=== PATIENT | male | born 1995 | race Two or more races ===

== ENCOUNTER 2016-06-03 20:54 | Emergency (ER) | payer SELFPAY ==
[~2016-06-03] VITALS: Ht 175.3 cm; Wt 86.2 kg
[2016-06-03] MEDS ORDERED: diphenhydrAMINE HCL 50 MG/ML VIAL IV ONE (23:00)
[2016-06-03] MEDS ORDERED: IV NS 0.9% 1,000 ML BAG IV ONE (23:00)
[2016-06-03] MEDS ORDERED: METOCLOPRAMIDE HCL 10 MG/2 ML VIAL IV ONE (23:00)
[2016-06-03] MEDS ORDERED: METOCLOPRAMIDE HCL 10 MG/2 ML VIAL ONE (23:19)
[2016-06-03] MEDS ORDERED: IV NS 0.9% 1,000 ML ONE (23:19)
[2016-06-03] MEDS ORDERED: diphenhydrAMINE HCL 50 MG/ML VIAL ONE (23:19)
[2016-06-03] MEDS ORDERED: IV SET PRIMARY 1 EA INFUS.SET MC ONE ×2 (23:19→23:26)
[2016-06-03] MEDS ORDERED: IV NS 0.9% 100 ML IV ONE (23:26)
[2016-06-04 01:14] VITALS: BP 126/77
== END 2016-06-04 01:14 | disposition home or self-care (01) ==
LOC: ER 20:54
DX: R51 Headache (principal); I10 Essential (primary) hypertension; J45.909 Unspecified asthma, uncomplicated; F17.200 Nicotine dependence, unspecified, uncomplicated; Z98.890 Other specified postprocedural states
CPT/HCPCS: A4606; J1200; J2765; J7030; Z7610

== ENCOUNTER 2016-08-27 18:54 | Emergency (ER) | payer OTHER ==
[~2016-08-27] VITALS: Ht 177.8 cm; Wt 86.2 kg
[2016-08-27 19:37] VITALS: BP 139/79
[2016-08-27] MEDS ORDERED: SULFAMETH/TRIMETH 800/160 MG 1 UDTAB TABLET PO ONE ×2 (20:49→21:00)
[2016-08-27] MEDS ORDERED: diphenhydrAMINE HCL 25 MG CAPSULE ONE (20:49)
[2016-08-27] MEDS ORDERED: CEPHALEXIN MONOHYDRATE 500 MG CAPSULE PO ONE ×2 (20:50→21:00)
[2016-08-27] MEDS ORDERED: diphenhydrAMINE HCL 25 MG CAPSULE PO ONE (21:00)
--- NOTE | 2016-08-27 21:00 | NUR ---
Patient discharged to home in stable condition. Written and verbal after care instructions given. Patient verbalizes understanding of instruction. ambulatory with a steady gait noted. pt [id number] no acute distress noted, resp even and unlabored. advice pt not to drive or operate any machinery due to pt was given benadryl. pt verbalize understanding. pt s/o at bedside to take pt home.
== END 2016-08-27 21:01 | disposition home or self-care (01) ==
LOC: ER 18:56
DX: H60.13 Cellulitis of external ear, bilateral (principal); J45.909 Unspecified asthma, uncomplicated; I10 Essential (primary) hypertension; F17.200 Nicotine dependence, unspecified, uncomplicated; Z90.89 Acquired absence of other organs
CPT/HCPCS: A4606; Q0163; Z7610